=== PATIENT | male | born 2000 | race Caucasian/White ===

== ENCOUNTER 2020-09-03 01:40 | Emergency (ER) | payer OTHER ==
[~2020-09-03] VITALS: Ht 172.7 cm; Wt 89.8 kg
--- NOTE | ~2020-09-03 | EMS ---
[address] [address] EMS Patient Care Report Name: BRAEDEN DORADO Room #: PRE M.R.#: [id number] Admission: Attend Phys: Discharge: Date of : 00 Report #: [id number] THIS REPORT FOR: //name// Report Transmitted: 09/03/2020 01:16 EMS Care Summary [place], [place]/[facility] Incident [id number] @ 09/03/2020 01:13 Incident Location [address] [place], [place] [id number] Patient BRAEDEN DORADO Male, 19 Years 2000 Patient Address [address] [place] [id number] Patient History None Reported, Patient Allergies No known allergies, Patient Medications None Reported, Chief Complaint SI Disposition Transported No Lights/[place] Reason Psychiatric Problem/Abnormal Behavior/Suicide Attempt Transported To [facility] Narrative UPON ARRIVAL THE PT. WAS FOUND STANDING ON THE SIDEWALK, AOX4 AND TALKING. THE PT. WAS STANDING WITH [employer]. THE PT. STATES HE WAS WALKING AND STARTED HAVING SUICIDAL IDEATIONS, AND CALLED 911. THE PT. HAS NOT TRIED TO HARM HIMSELF, BUT SAYS HE HAS A PLAN IN PLACE. THE PT. WAS ASSISTED TO THE UNIT AND VITALS [address] [address] EMS Patient Care Report Name: BRAEDEN DORADO Room #: PRE ER M.R.#: [id number] Admission: Attend Phys: Discharge: Date of : 00 Report #: [id number] ASSESSED. THE PT. WAS MONITORED AND TRANSPORTED TO [facility] WITHOUT CHANGE. THE PT. WAS TAKEN TO A HALLWAY BED WITHOUT INCIDENCE. Initial Vitals @01:31P: 86,BP: 134/82,GCS: 15,SpO2: 98, @:22P: 80,R: 14,BP: 121/87,Pain: 0/10,GCS: 15,SpO2: 98,Revised Trauma: 12, Assessments @01:26MENTAL:Person Oriented,Time Oriented,Event Oriented,Place Oriented,SKIN:No Abnormalities,HEENT:Head/Face: No Abnormalities,LUNG SOUNDS:General: No Abnormalities,ABDOMEN:General: No Abnormalities,PELVIS//GI:EXTREMITIES:PULSE:NEURO:No Abnormalities, Impression Behavioral/psychiatric episode Procedures @01:21ALS AssessmentResponse: UnchangedSucceeded Timeline 01:12,Call Received 01:12,Dispatch Notified 01:13,Dispatched 01:14,En Route 01:20,On Scene 01:20,At Patient 01:21,ALS Assessment,Response: UnchangedSucceeded, 01:22,BP: 121/87 M,PULSE: 80,RR: 14 R,SPO2: 98 Ox,ETCO2: ,BG: ,PAIN: 0,GCS: 15, 01:23,Depart Scene 01:31,BP: 134/82 M,PULSE: 86,RR: R,SPO2: 98 Ox,ETCO2: ,BG: ,PAIN: ,GCS: 15, 01:45,At Destination 02:00,Call Closed Disclaimer v1.1 Copyright 2020 [employer] This EMS Care Summary contains data elements from the applicable legal record (which may be displayed differently). It is designed to provide pertinent information for the following purposes: continuity of care, clinical quality, and state data reporting. The complete legal record is available to ED staff and administrators of the receiving hospital in [employer]'s Patient Tracker. All data is provided "as is."
[2020-09-03 02:09] LABS: ABSOLUTE NEUTROPHILS 4.5 thou/uL (1.4-8.2); BASOPHILS 0.7 % (0.0-2.0); EOSINOPHILS 1.3 % (0.0-3.0); HEMATOCRIT 44.6 % (42.0-52.0); HEMOGLOBIN 14.9 gm/dL (14.0-18.0); LYMPHOCYTES 24.7 % (24.0-44.0); MCH 29.7 pg (26.0-34.0); MCHC 33.5 g/dL (28.0-37.0); MCV 88.6 fL (80.0-100.0); PLATELET COUNT 239 thou/uL (150-400); POLYS 63.3 % (36.0-66.0); RBC 5.03 mil/uL (4.50-6.00); RDW 13.2 % (10.5-14.5); WBC 7.1 thou/uL (4.0-11.0)
[2020-09-03 02:19] LABS: CALCIUM 9.4 mg/dL (8.5-10.1); CREATININE 1.3 mg/dL (0.7-1.3); POTASSIUM 3.1 mmol/L (3.5-5.1)
[2020-09-03 02:48] LABS: SALICYLATE 2.9 mg/dL (2.8-20.0)
[2020-09-03 03:53] LABS: AMP/METHAMP Negative (Negative); BARBITURATES Negative (Negative); BENZODIAZEPINES Negative (Negative); COCAINE Negative (Negative); METHADONE Negative (Negative); OPIATES Negative (Negative); PCP Negative (Negative)
[2020-09-04 08:04] VITALS: BP 127/59
== END 2020-09-04 08:03 ==
LOC: ER 01:40
PROVIDERS: Emergency Medicine
DX: R45.851 Suicidal ideations (principal); F32.9 Major depressive disorder, single episode, unspecified; Z20.822 Contact with and (suspected) exposure to COVID-19

== ENCOUNTER 2020-12-18 23:29 | Emergency (ER) | payer OTHER ==
[~2020-12-18] VITALS: Ht 172.7 cm; Wt 95.3 kg
[2020-12-19 00:12] LABS: ABSOLUTE NEUTROPHILS 5.2 thou/uL (1.4-8.2); BASOPHILS 0.5 % (0.0-2.0); EOSINOPHILS 0.6 % (0.0-3.0); HEMATOCRIT 46.9 % (42.0-52.0); HEMOGLOBIN 15.9 gm/dL (14.0-18.0); LYMPHOCYTES 33.2 % (24.0-44.0); MCV 88.4 fL (80.0-100.0); MONOCYTES 7.2 % (1.0-8.0); PLATELET COUNT 223 thou/uL (150-400); POLYS 58.5 % (36.0-66.0); RDW 12.9 % (10.5-14.5); WBC 8.9 thou/uL (4.0-11.0)
[2020-12-19 00:17] LABS: ANION GAP 14 mmol/L (7-16); BUN 10 mg/dL (7-18); CALCIUM 9.1 mg/dL (8.5-10.1); CHLORIDE 104 mmol/L (98-107); CO2 22 mmol/L (21-32); CREATININE 1.5 mg/dL (0.7-1.3); GLUCOSE 113 mg/dL (74-106); POTASSIUM 3.2 mmol/L (3.5-5.1); SODIUM 140 mmol/L (136-145)
[2020-12-19 00:27] LABS: ALBUMIN 4.2 g/dL (3.4-5.0); SGOT 21 U/L (15-37); SGPT 26 U/L (16-63); TOTAL BILIRUBIN 0.2 mg/dL (0.2-1.0); TOTAL PROTEIN 7.6 g/dL (6.4-8.2); TROPONIN-I <0.06 ng/mL (<0.06)
[2020-12-19 00:54] LABS: AMP/METHAMP Negative (Negative); BARBITURATES Negative (Negative); BENZODIAZEPINES Negative (Negative); COCAINE Negative (Negative); METHADONE Negative (Negative); OPIATES Negative (Negative); PCP Negative (Negative)
[2020-12-19 01:45] VITALS: BP 118/60
--- NOTE | 2020-12-19 06:45 | EKG ---
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 12/19/20 [id number] Miguel Zhu MD, FACC /EPI
== END 2020-12-19 02:45 | disposition home or self-care (01) ==
LOC: ER 23:29
PROVIDERS: Emergency Medicine
DX: E87.6 Hypokalemia (principal); R42 Dizziness and giddiness; R20.2 Paresthesia of skin; R06.02 Shortness of breath